=== PATIENT | male | born 1960 | race Caucasian/White ===

== ENCOUNTER 2017-03-23 14:35 | Emergency (ER) | payer OTHER ==
[~2017-03-23] VITALS: Ht 172.7 cm; Wt 79.5 kg
[2017-03-23] MEDS ORDERED: IBUPROFEN 600 MG TABLET PO ONE (16:30)
[2017-03-23] MEDS ORDERED: HYDROCODONE/ACETAMINOPHEN 5-325 MG TABLET PO ONE (16:30)
[2017-03-23 17:53] VITALS: BP 127/81
== END 2017-03-23 17:54 | disposition home or self-care (01) ==
LOC: EMS 14:38
DX: S61.432A Puncture wound without foreign body of left hand, initial encounter (principal); R03.0 Elevated blood-pressure reading, without diagnosis of hypertension; F17.200 Nicotine dependence, unspecified, uncomplicated; W45.8XXA Other foreign body or object entering through skin, initial encounter; Y93.89 Activity, other specified; Y92.89 Other specified places as the place of occurrence of the external cause; Y99.8 Other external cause status
CPT/HCPCS: 99284

== ENCOUNTER 2017-04-03 19:41 | Emergency (ER) | payer OTHER ==
[~2017-04-03] VITALS: Ht 172.7 cm; Wt 80.9 kg
[2017-04-03 20:51] VITALS: BP 132/89
[2017-04-03] MEDS ORDERED: PERTUSS(ACELL),DIPH,TET VAC/PF 0.5 ML VIAL IM ONE (21:00)
== END 2017-04-03 21:11 | disposition home or self-care (01) ==
LOC: EMS 19:41
DX: S60.552A Superficial foreign body of left hand, initial encounter (principal); F17.210 Nicotine dependence, cigarettes, uncomplicated
CPT/HCPCS: 82962; 90471; 90715; 99283